=== PATIENT | female | born 1935 | race African-American/Black ===

== ENCOUNTER 2018-04-13 07:51 | Outpatient (CLI) | payer MEDICARE ==
[~2018-04-13] VITALS: Ht 175.3 cm; Wt 68.0 kg
[~2018-04-13 07:51] MED LIST: COUMADIN2.5 MG PO; FERROUS SULFAT325 MG PO; KLOR-CON 1010 MEQ PO; LANOXIN250 MCG PO; VERELAN120 MG PO
[2018-04-13 09:45] VITALS: BP 138/57; Ht 175.3 cm; Wt 68.0 kg
== END 2018-04-13 18:45 | disposition home or self-care (01) ==
LOC: D.OPS 07:51
DX: D64.9 Anemia, unspecified (principal); Z01.812 Encounter for preprocedural laboratory examination

== ENCOUNTER 2019-01-07 08:45 | Inpatient (IN) | payer MEDICARE ==
[2019-01-07] VITALS (7 sets, daily range): BP systolic 119–157; BP diastolic 54–78; BMI 18.5
[~2019-01-07] VITALS: Ht 175.3 cm; Wt 53.3 kg
[2019-01-07 09:33] LABS: BASOPHILS 0.2 % (0-2); HEMATOCRIT 27.7 % (36.0-48.0); HEMOGLOBIN 8.5 g/dL (12-16); IMMATURE GRANULOCYTES 0.2 % (0-5); LYMPHOCYTES 18.6 % (15-50); MCHC 30.7 g/dL (31.0-37.0); MCV 87.9 fL (80.0-100.0); MEAN PLATELET VOLUME 10.5 fL (7.4-10.4); MONOCYTES 10.6 % (2-11); NEUTROPHILS 69.4 % (40-80); PLATELET COUNT 155 10x3/uL (130-400); RBC 3.15 10x6/uL (4.00-5.40); RDW 16.4 % (11.5-14.5); WBC 5.2 10x3/uL (4.8-10.8)
[2019-01-07 09:46] LABS: ALBUMIN 3.6 g/dL (3.4-5.0); ALKALINE PHOSPHATASE 46 U/L (46-116); ALT (SGPT) 13 U/L (10-68); BILIRUBIN - TOTAL 0.63 mg/dL (0.2-1.3); CALC OSMOLALITY 281 mosm/kg (275-300); CALCIUM 8.9 mg/dL (8.5-10.1); CARBON DIOXIDE 29.9 mmol/L (21.0-32.0); CHLORIDE - SERUM 104 mmol/L (98-107); CREATININE - SERUM 0.9 mg/dL (0.6-1.3); GLUCOSE 104 mg/dL (74-106); PROTEIN - SERUM 7.7 g/dL (6.4-8.2); SODIUM 141 mmol/L (136-145); UREA NITROGEN 15 mg/dL (7-18); eGFR NON AFRICAN AMERICAN 63 mL/min (90-120)
[2019-01-07 09:58] LABS: CKMB 0.4 U/L (0.0-3.6); CREATINE KINASE 38 UL (21-215); MAGNESIUM - SERUM 2.2 mg/dL (1.8-2.4); TROPONIN-I < 0.017 ng/mL (0.000-0.060)
[2019-01-07 10:46] LABS: APPEARANCE CLEAR (CLEAR); BILIRUBIN NEGATIVE (NEGATIVE); COLOR YELLOW (YELLOW); GLUCOSE NEGATIVE (NEGATIVE); KETONE NEGATIVE (NEGATIVE); NITRITE NEGATIVE (NEGATIVE); PROTEIN NEGATIVE (NEGATIVE); SPECIFIC GRAVITY 1.015 (1.005-1.020); UROBILINOGEN NORMAL (NORMAL)
[2019-01-07 16:35] LABS: APTT 48.7 SECONDS (22.8-39.4); INR 2.7 (0.85-1.17); PROTIME 27.9 SECONDS (11.6-15.0)
[2019-01-07 16:36] LABS: D-DIMER-QUANTITATIVE 1.32 ug/mLFEU (0.20-0.54)
[2019-01-07 16:49] LABS: CKMB 0.2 U/L (0.0-3.6); CREATINE KINASE 38 UL (21-215); MAGNESIUM - SERUM 2.3 mg/dL (1.8-2.4); TROPONIN-I 0.026 ng/mL (0.000-0.060)
[2019-01-07 22:35] LABS: CKMB 0.4 U/L (0.0-3.6); CREATINE KINASE 36 UL (21-215)
[2019-01-08 05:49] VITALS: BP 104/41
[2019-01-08 06:28] LABS: ANION GAP 10.8 mmol/L (8-16); CALCIUM 8.3 mg/dL (8.5-10.1); CARBON DIOXIDE 27.5 mmol/L (21.0-32.0); CREATININE - SERUM 0.8 mg/dL (0.6-1.3); POTASSIUM - SERUM 4.3 mmol/L (3.5-5.1)
[2019-01-08 06:35] LABS: BASOPHILS 0.2 % (0-2); HEMATOCRIT 22.3 % (36.0-48.0); IMMATURE GRANULOCYTES 0.2 % (0-5); LYMPHOCYTES 14.2 % (15-50); MCH 27.3 pg (26.0-34.0); MCHC 30.9 g/dL (31.0-37.0); MCV 88.1 fL (80.0-100.0); MEAN PLATELET VOLUME 9.8 fL (7.4-10.4); MONOCYTES 8.7 % (2-11); NEUTROPHILS 75.7 % (40-80); PLATELET COUNT 131 10x3/uL (130-400); RBC 2.53 10x6/uL (4.00-5.40); RDW 16.7 % (11.5-14.5); WBC 5.2 10x3/uL (4.8-10.8)
[2019-01-08 06:53] LABS: HEMOGLOBIN 6.9 g/dL (12-16)
[2019-01-08 09:01] VITALS: BP 106/46
[2019-01-08 10:59] LABS: INR 3.18 (0.85-1.17); PROTIME 31.8 SECONDS (11.6-15.0)
[2019-01-08 11:53] VITALS: BP 121/76
[2019-01-08 13:30] VITALS: Ht 175.3 cm; Wt 53.3 kg
[2019-01-08 20:32] VITALS: BP 109/47
[2019-01-09 06:08] VITALS: BP 104/42
[2019-01-09 07:14] LABS: ANION GAP 10.2 mmol/L (8-16); CALCIUM 8.4 mg/dL (8.5-10.1); CARBON DIOXIDE 28.7 mmol/L (21.0-32.0); POTASSIUM - SERUM 3.9 mmol/L (3.5-5.1)
[2019-01-09 07:23] LABS: BASOPHILS 0.2 % (0-2); EOSINOPHILS 1.1 % (0-7); IMMATURE GRANULOCYTES 0.2 % (0-5); LYMPHOCYTES 12.8 % (15-50); MCH 27.7 pg (26.0-34.0); MCHC 31.7 g/dL (31.0-37.0); MCV 87.1 fL (80.0-100.0); MEAN PLATELET VOLUME 10.5 fL (7.4-10.4); MONOCYTES 8.2 % (2-11); NEUTROPHILS 77.5 % (40-80); PLATELET COUNT 143 10x3/uL (130-400); RDW 16.1 % (11.5-14.5); WBC 6.3 10x3/uL (4.8-10.8)
[2019-01-09 07:35] LABS: HEMATOCRIT 27.1 % (36.0-48.0); HEMOGLOBIN 8.6 g/dL (12-16); RBC 3.11 10x6/uL (4.00-5.40)
[2019-01-09 10:25] VITALS: BP 111/45
[2019-01-09 15:55] VITALS: BP 119/76
[2019-01-09 20:55] VITALS: BP 121/50
[2019-01-09 21:02] VITALS: BP 114/37; BP 126/38
[2019-01-10 00:46] VITALS: BP 131/80
[2019-01-10 05:29] LABS: BASOPHILS 0.2 % (0-2); EOSINOPHILS 1.8 % (0-7); HEMATOCRIT 27.9 % (36.0-48.0); HEMOGLOBIN 8.6 g/dL (12-16); IMMATURE GRANULOCYTES 0.2 % (0-5); MCH 27.3 pg (26.0-34.0); MCHC 30.8 g/dL (31.0-37.0); MCV 88.6 fL (80.0-100.0); MEAN PLATELET VOLUME 10.1 fL (7.4-10.4); MONOCYTES 9.2 % (2-11); NEUTROPHILS 72.6 % (40-80); PLATELET COUNT 140 10x3/uL (130-400); RBC 3.15 10x6/uL (4.00-5.40); RDW 16.3 % (11.5-14.5); WBC 6.2 10x3/uL (4.8-10.8)
[2019-01-10 05:36] LABS: CALCIUM 8.5 mg/dL (8.5-10.1); CARBON DIOXIDE 26.8 mmol/L (21.0-32.0); CREATININE - SERUM 1.1 mg/dL (0.6-1.3); POTASSIUM - SERUM 3.8 mmol/L (3.5-5.1)
[2019-01-10 05:43] VITALS: BP 112/47
--- NOTE | 2019-01-10 14:39 | CN ---
PATIENT NAME:DAVID BECKHAM MEDICAL RECORD: [id number] : 31 LOCATION:. D.2137 ADMIT DATE: 01/08/19 ACCOUNT: [id number] CONSULTING PHYSICIAN: ANDREA ANTOINE MD REFERRING PHYSICIAN: NETTA RAMIREZ MD DATE OF CONSULTATION: 01/08/2019 DIAGNOSES: 1. Syncope. 2. Paroxysmal. 3. Atrial fibrillation. 4. Sick sinus syndrome, status post pacemaker. 5. Coronary artery disease, status post coronary bypass graft surgery. 6. Hypertension. 7. Dementia. HISTORY OF PRESENT ILLNESS: Mrs. Beckham presents with syncope. She does have a history of coronary artery disease. She has had no anginal symptomatology. She has had bypass surgery. She has a history of atrial fibrillation, for which she is on chronic Coumadin therapy, verapamil, and digoxin. The verapamil also controls her blood pressure. She has had no significant dysrhythmias. Here, her heart rate and blood pressure have been normal. PHYSICAL EXAMINATION: GENERAL APPEARANCE: Well-nourished, well-developed, appears stated age. Level of distress, comfortable. PSYCHIATRIC: Mental status, alert, normal affect. Orientation, oriented to time, place and person. EYES: Lids and conjunctiva, noninjected. No discharge, no pallor. ENT: Lips, teeth, gums, normal dentition. Oropharynx, no cyanosis, no pallor. NECK: Carotid arteries, bilateral normal upstroke, no bruits, no thrills. JUGULAR VEINS: No jugular venous pressure or distention. CERVICAL LYMPH NODES: Nontender, nonenlarged. THYROID: Not enlarged. Nontender. No nodules. LUNGS: Respiratory effort, unlabored. CHEST: Normal curvature. No thoracic deformity. No chest wall tenderness. Percussion, resonant. Auscultation, clear. No wheezes, no rales, no rhonchi. CARDIOVASCULAR: Precordial exam, nondisplaced. No heaves or pericardial thrills. Rate and rhythm, regular. Heart sounds, normal S1, normal S2. No S3, no gallop, no rub. Systolic murmur, not heard. Diastolic murmur, not heard. EXTREMITIES: No cyanosis, no edema. Peripheral pulses, full and equal in all extremities, except as noted. No bruits appreciated. ABDOMEN: Soft, nondistended. Normal aorta. No bruit. Nontender. No masses. Liver, nontender, no hepatomegaly. Spleen, nontender, no splenomegaly. MUSCULOSKELETAL: No joint tenderness. No joint swelling. No erythema. NEUROLOGICAL: Normal gait, normal strength, normal tone. SKIN: Warm and dry. IMPRESSION: We will interrogate the pacemaker for evaluation of syncope. TRANSINT:[id number] Voice Confirmation ID: [id number] DOCUMENT ID: [id number] CONSULT REPORT [id number] DAVID BECKHAM, ANDREA BRIONES at 1439 CC: [id number] DICTATION DATE: 01/08/19 0816 ROLLER PRINTING SUPERVISOR: 01/08/19 1442 ADM IN [facility] [address] [place] [id number]
--- NOTE | 2019-01-10 14:39 | EC ---
PATIENT:DAVID BECKHAM DATE OF SERVICE: 01/08/19 SEX: F MEDICAL RECORD: [id number] DATE OF : 31 LOCATION:D. D.213 AGE OF PATIENT: 83 ADMISSION DATE: 01/08/19 REFERRING PHYSICIAN: INTERPRETING PHYSICIAN: ANDREA QUINTERO MD ECHOCARDIOGRAM REPORT ECHO CHARGES 4 ECHO COMPLETE Date: 01/07/19 CLINICAL DIAGNOSIS: MURMUR ECHOCARDIOGRAPHIC MEASUREMENTS (adult normal given) AC root (d.<3.7cm) 3.0 cm LV Septum d (<1.2 cm> 1.2 cm Valve Excursion 0.9 cm LV Septum (systole) 1.4 cm Left Atria (s.<4.0cm> 11.6 cm LVPW d(<1.2cm) 1.2 cm RV (d.<2.3cm) 2.5 cm LVPW (sytole) 1.8 cm LV diastole(<5.6CM) 6.1 cm MV E-F(>70mm/sec) cm LV systole 4.7 cm LVOT Diameter 1.9 cm MV exc.(>10mm) cm Est.ejection fraction (50-75%) % DOPPLER: LVIT cm/sec A 33 cm/sec E 120 cm/sec LA cm/sec RVSP 46.4 mmHg LVOT 97 cm/sec AOP1/2T m/s Asc. Ao 213 cm/sec RVOT 59 cm/sec RA cm/sec PA 93 cm/sec AV Gradient Peak 18.1 mmHg AV Mean 11.4 mmHg AV Area 1.4 cm MV Gradient Peak 17.5 mmHg MV Mean 6.7 mmHg MV Area cm COMMENTS: Guest Service Aide: Ksenia [facility] Hand Iii Cutter: 1 Dr. Quintero TAPE# PACS Pericardial Effusion N DATE OF SERVICE: FINDINGS: 1. Left ventricular chamber size is dilated. Left ventricular systolic function is mildly reduced. Overall ejection fraction in 45% to 50% range. 2. Left atrium is enlarged. Right atrium and right ventricular chamber sizes are as well mildly dilated. 3. Valvular structures: Aortic valve demonstrates mild calcific aortic stenosis. Valve area calculates to 1.4 cm-squared with gradient of 18 mm across the valve. 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 4. Doppler interrogation reveals mild aortic insufficiency, severe mitral regurgitation, and moderate tricuspid regurgitation. No other valvular insufficiency or stenosis. Pulmonary systolic pressure is estimated at 46 mmHg. No evidence of pericardial effusion or left ventricular thrombus. TRANSINT:[id number] Voice Confirmation ID: [id number] DOCUMENT ID: [id number] ANDREA QUINTERO MD at 1439 CC: [id number] DICTATION DATE: 01/08/19906 STRETCHING MACHINE TENDER FRAME: 01/08/19 1510 ADM IN [place] [address] [place] [id number]
[2019-01-10 18:17] VITALS: BP 156/55
[2019-01-10 21:07] VITALS: BP 101/43
[2019-01-11 05:02] VITALS: BP 107/55
[2019-01-11 06:30] LABS: BASOPHILS 0 % (0-2); HEMATOCRIT 28.6 % (36.0-48.0); HEMOGLOBIN 8.9 g/dL (12-16); IMMATURE GRANULOCYTES 0.2 % (0-5); LYMPHOCYTES 14.8 % (15-50); MCHC 31.1 g/dL (31.0-37.0); MCV 89.9 fL (80.0-100.0); MEAN PLATELET VOLUME 10.1 fL (7.4-10.4); MONOCYTES 8.1 % (2-11); NEUTROPHILS 74.9 % (40-80); PLATELET COUNT 150 10x3/uL (130-400); RBC 3.18 10x6/uL (4.00-5.40); RDW 16.3 % (11.5-14.5)
[2019-01-11 06:50] LABS: ANION GAP 10.7 mmol/L (8-16); CALCIUM 8.3 mg/dL (8.5-10.1); CARBON DIOXIDE 27.1 mmol/L (21.0-32.0); CREATININE - SERUM 1.1 mg/dL (0.6-1.3); POTASSIUM - SERUM 3.8 mmol/L (3.5-5.1)
[2019-01-11 06:52] LABS: INR 3.39 (0.85-1.17); PROTIME 33.5 SECONDS (11.6-15.0)
[2019-01-11 09:39] VITALS: BP 116/38
[2019-01-11 11:45] VITALS: BP 93/39
--- NOTE | 2019-01-11 11:53 | MORECARE ---
CASE MANAGEMENT DISCHARGE SUMMARY PATIENT: DAVID BECKHAM UNIT: [id number] ADM DATE: 01/08/19 AGE: 83 : 33 SEX: F ROOM/BED: D.2137 AUTHOR: UZMA RUDD PHYSICIAN: REFERRING PHYSICIAN: NETTA RAMIREZ MD DATE OF SERVICE: 01/11/19 Discharge Plan Patient Name: DAVID BECKHAM Facility: [facility]:[place] : 1935 Planned Disposition: Home Anticipated Discharge Date: Discharge Date: Expected LOS: Initial Reviewer: [email or web address] Initial Review Date: 01/11/2019 Generated: 01/11/19 12:53 pm Coverage Notice Reviewer: [id number] - Tyrell Marquez Notice Issued Date-Time: 01/11/2019 9:25 Notice Type: IM Discharge Notice Notice Delivered To: Patient Relationship to Patient: Retail Specialist Name: Delivery Method: HAND - Hand Delivered Yuli Days: Prior Verbal Notification: Recipient Understood Notice: Yes Recipient Signature: Yes Med Rec Note Co-signed by Attending: Coverage Notice Comment: Patient Name: DAVID BECKHAM Page [phone] at 1153 All edits/amendments must be made on the electronic document DICTATION DATE: 01/11/19 115 ROENTGENOLOGIST: PATRICIA 01/11/19 115 RPT#: [id number] DC DATE: STATUS: ADM IN [place] [address] [place] [address] END OF REPORT
--- NOTE | 2019-01-11 12:01 | MORECARE ---
CASE MANAGEMENT DISCHARGE SUMMARY PATIENT: DAVID BECKHAM UNIT: [id number] ADM DATE: 01/08/19 AGE: 83 : 33 SEX: F ROOM/BED: D.3526 AUTHOR: BLAIRE,DOC PHYSICIAN: REFERRING PHYSICIAN: NETTA RAMIREZ MD DATE OF SERVICE: 01/11/19 Discharge Plan Patient Name: DAVID BECKHAM Facility: [facility]:[place] : 1935 Planned Disposition: Home Anticipated Discharge Date: Discharge Date: Expected LOS: Initial Reviewer: [id number] Initial Review Date: 01/11/2019 Generated: 01/11/19 1:01 pm Comments DCP- Discharge Planning Updated by [email or web address]: Tyrell Maruqez on 01/11/19 11:[address] Patient Name: DAVID BECKHAM Admission Status: ER Accout number: [id number] Admission Date: 01-08-2019 : 1935 Admission Diagnosis: Attending: NETTA RAMIREZ Current LOS: 3 Anticipated DC Date: Planned Disposition: Home Primary Insurance: MEDICARE A & B Discharge Planning Comments: CM MET WITH PT AND DAUGHTER IN ROOM TO DISCUSS DISCHARGE PLANNING AND NEEDS. DAVID BECKHAM provided verbal consent to discuss current and ongoing needs with/in the presence of: DAUGHTERALISE. PT REPORTS LIVING AT HOME DEPENDENTLY WITH SPOUSE AND CHILDREN WHO ASSIST WITH MANAGING MEDICATIONS. PT HAS NO MEDICAL EQUIPMENT AND NO OUTSIDE SERVICES ASSISTING IN THE HOME. CM DISCUSSED AVAILABILITY OF HOME HEALTH, REHAB SERVICES AND MEDICAL EQUIPMENT. PT DENIES DISCHARGE NEEDS, REPORTS HER FAMILY WILL PICK HER UP FOR DISCHARGE HOME. IMPORTANT MESSAGE FROM MEDICARE PROVIDED AND EXPLAINED. PATIENT PLANS TO DISCHARGE HOME WITH FAMILY, DENIES NEEDS AT THIS TIME. CM TO FOLLOW AND ASSIST IF NEEDED. Advertising Assistant Manager: Tyrell Marquez DCPIA - Discharge Planning Initial Assessment Updated by [email or web address]: Tyrell Marquez on 01/11/19 11:53 am * Is the patient Alert and Oriented? Yes * How many steps to enter\exit or inside your home? NONE * PCP DR. BHATTI * Pharmacy [facility] * Preadmission Environment Home with Family * ADLs Partial Dependent * Partial ADLs (Assistance needed) Medication Management * Equipment None * Other Equipment [employer] - PREFERRED EQUIPMENT PROVIDER * List name and contact numbers for known caregivers / representatives who currently or will assist patient after discharge: GLORIA BECKHAM, SPOUSE, ALISE VICKERS, DTR, * Verbal permission to speak to the caregivers and representatives has been obtained from the patient. Yes * Community resources currently utilized None * Please name any agencies selected above. NONE * Additional services required to return to the preadmission environment? No * Can the patient safely return to the preadmission environment? Yes * Has this patient been hospitalized within the prior 30 days at any hospital? No Coverage Notice Reviewer: [id number] Genaro Marquez Notice Issued Date-Time: 01/11/2019 9:25 Notice Type: IM Discharge Notice Notice Delivered To: Patient Relationship to Patient: Inspector Technician Name: Delivery Method: HAND - Hand Delivered Yuli Days: Prior Verbal Notification: Recipient Understood Notice: Yes Recipient Signature: Yes Med Rec Note Co-signed by Attending: Coverage Notice Comment: Last DP export: 01/11/19 10:53 a Patient Name: DAVID BECKHAM Page [phone] at 1201 All edits/amendments must be made on the electronic document DICTATION DATE: 01/11/19 1200 DIRECTOR OF TESTING: PATRICIA 01/11/19 1200 RPT#: [id number] DC DATE: STATUS: ADM IN [facility] [address] [place] [address] END OF REPORT
[2019-01-11 16:53] VITALS: BP 115/49
[2019-01-11 21:14] VITALS: BP 99/50
[2019-01-12 03:53] VITALS: BP 107/48
[2019-01-12 05:49] LABS: BASOPHILS 0.2 % (0-2); EOSINOPHILS 2.7 % (0-7); HEMATOCRIT 28.3 % (36.0-48.0); HEMOGLOBIN 8.8 g/dL (12-16); IMMATURE GRANULOCYTES 0.2 % (0-5); LYMPHOCYTES 18.5 % (15-50); MCHC 31.1 g/dL (31.0-37.0); MCV 90.1 fL (80.0-100.0); MONOCYTES 7.7 % (2-11); NEUTROPHILS 70.7 % (40-80); PLATELET COUNT 140 10x3/uL (130-400); RBC 3.14 10x6/uL (4.00-5.40); RDW 16.3 % (11.5-14.5); WBC 5.2 10x3/uL (4.8-10.8)
[2019-01-12 06:19] LABS: ALBUMIN 2.8 g/dL (3.4-5.0); BILIRUBIN - TOTAL 0.59 mg/dL (0.2-1.3); CALCIUM 8.3 mg/dL (8.5-10.1); CARBON DIOXIDE 26.8 mmol/L (21.0-32.0); POTASSIUM - SERUM 3.8 mmol/L (3.5-5.1); PROTEIN - SERUM 6.2 g/dL (6.4-8.2)
[2019-01-12 08:00] VITALS: BP 120/52
--- NOTE | 2019-01-12 09:18 | MORECARE ---
CASE MANAGEMENT DISCHARGE SUMMARY PATIENT: DAVID BECKHAM UNIT: [id number] ADM DATE: 01/08/19 AGE: 83 : 33 SEX: F ROOM/BED: D.1657 AUTHOR: BLAIRE,DOC PHYSICIAN: REFERRING PHYSICIAN: NETTA RAMIREZ MD DATE OF SERVICE: 01/12/19 Discharge Plan Patient Name: DAVID BECKHAM Facility: [facility]:[place] : 1935 Planned Disposition: Home Anticipated Discharge Date: Discharge Date: Expected LOS: Initial Reviewer: [email or web address] Initial Review Date: 01/11/2019 Generated: 01/12/19 10:18 am Comments DCP- Discharge Planning Updated by [email or web address]: Tyrell Marquez on 01/11/19 11:[address] Patient Name: DAVID BECKHAM Admission Status: ER Accout number: [id number] Admission Date: 01-08-2019 : 1935 Admission Diagnosis: Attending: NETTA RAMIREZ Current LOS: 3 Anticipated DC Date: Planned Disposition: Home Primary Insurance: MEDICARE A & B Discharge Planning Comments: CM MET WITH PT AND DAUGHTER IN ROOM TO DISCUSS DISCHARGE PLANNING AND NEEDS. DAVID BECKHAM provided verbal consent to discuss current and ongoing needs with/in the presence of: DAUGHTERALISE. PT REPORTS LIVING AT HOME DEPENDENTLY WITH SPOUSE AND CHILDREN WHO ASSIST WITH MANAGING MEDICATIONS. PT HAS NO MEDICAL EQUIPMENT AND NO OUTSIDE SERVICES ASSISTING IN THE HOME. CM DISCUSSED AVAILABILITY OF HOME HEALTH, REHAB SERVICES AND MEDICAL EQUIPMENT. PT DENIES DISCHARGE NEEDS, REPORTS HER FAMILY WILL PICK HER UP FOR DISCHARGE HOME. IMPORTANT MESSAGE FROM MEDICARE PROVIDED AND EXPLAINED. PATIENT PLANS TO DISCHARGE HOME WITH FAMILY, DENIES NEEDS AT THIS TIME. CM TO FOLLOW AND ASSIST IF NEEDED. Cook Larder: Tyrell Marquez DCPIA - Discharge Planning Initial Assessment Updated by [id number]: Tyrell Marquez on 01/11/19 11:53 am * Is the patient Alert and Oriented? Yes * How many steps to enter\exit or inside your home? NONE * PCP DR. BHATTI * Pharmacy [facility] * Preadmission Environment Home with Family * ADLs Partial Dependent * Partial ADLs (Assistance needed) Medication Management * Equipment None * Other Equipment [employer] - PREFERRED EQUIPMENT PROVIDER * List name and contact numbers for known caregivers / representatives who currently or will assist patient after discharge: GLORIA BECKHAM, SPOUSE, ALISE VICKERS, DTR, * Verbal permission to speak to the caregivers and representatives has been obtained from the patient. Yes * Community resources currently utilized None * Please name any agencies selected above. NONE * Additional services required to return to the preadmission environment? No * Can the patient safely return to the preadmission environment? Yes * Has this patient been hospitalized within the prior 30 days at any hospital? No Coverage Notice Reviewer: [id number] Genaro Marquez Notice Issued Date-Time: 01/11/2019 9:25 Notice Type: IM Discharge Notice Notice Delivered To: Patient Relationship to Patient: Power Plant Inspector Name: Delivery Method: HAND - Hand Delivered Yuli Days: Prior Verbal Notification: Recipient Understood Notice: Yes Recipient Signature: Yes Med Rec Note Co-signed by Attending: Coverage Notice Comment: Last DP export: 01/11/19 11:01 a Patient Name: DAVID BECKHAM Page [id number] at 0918 All edits/amendments must be made on the electronic document DICTATION DATE: 01/12/19917 [employer] SALES: PATRICIA 01/12/19917 RPT#: [id number] DC DATE: STATUS: ADM IN [facility] [address] [place] [address] END OF REPORT
[2019-01-12 11:52] VITALS: BP 104/42
[2019-01-12 12:54] LABS: INR 2.76 (0.85-1.17); PROTIME 28.4 SECONDS (11.6-15.0)
[2019-01-12 15:05] VITALS: BP 116/48
[2019-01-12 20:32] VITALS: BP 100/42
[2019-01-13 00:47] VITALS: BP 97/42
[2019-01-13 05:24] VITALS: BP 93/59
[2019-01-13 05:55] LABS: BASOPHILS 0.2 % (0-2); EOSINOPHILS 2.3 % (0-7); HEMATOCRIT 28.6 % (36.0-48.0); HEMOGLOBIN 8.8 g/dL (12-16); IMMATURE GRANULOCYTES 0.2 % (0-5); MCH 27.8 pg (26.0-34.0); MCHC 30.8 g/dL (31.0-37.0); MCV 90.5 fL (80.0-100.0); MEAN PLATELET VOLUME 10.6 fL (7.4-10.4); MONOCYTES 9.2 % (2-11); NEUTROPHILS 72.1 % (40-80); PLATELET COUNT 152 10x3/uL (130-400); RBC 3.16 10x6/uL (4.00-5.40); RDW 16.1 % (11.5-14.5); WBC 5.1 10x3/uL (4.8-10.8)
[2019-01-13 06:05] LABS: INR 2.32 (0.85-1.17); PROTIME 24.7 SECONDS (11.6-15.0)
[2019-01-13 06:27] LABS: ALBUMIN 2.7 g/dL (3.4-5.0); ANION GAP 10.3 mmol/L (8-16); BILIRUBIN - TOTAL 0.35 mg/dL (0.2-1.3); CARBON DIOXIDE 27.6 mmol/L (21.0-32.0); CREATININE - SERUM 1.1 mg/dL (0.6-1.3); POTASSIUM - SERUM 3.9 mmol/L (3.5-5.1); PROTEIN - SERUM 6.2 g/dL (6.4-8.2)
[2019-01-13 08:10] VITALS: BP 126/64
[2019-01-13 11:51] VITALS: BP 121/78
[2019-01-13] MEDS ORDERED: BETAPACE 80 MG80 MG PO (11:54)
--- NOTE | 2019-01-15 08:57 | MORECARE ---
CASE MANAGEMENT DISCHARGE SUMMARY PATIENT: DAVID BECKHAM UNIT: [id number] ADM DATE: 01/08/19 AGE: 83 : 33 SEX: F ROOM/BED: D.5549 AUTHOR: BLAIRE,DOC PHYSICIAN: REFERRING PHYSICIAN: NETTA RAMIREZ MD DATE OF SERVICE: 01/15/19 Discharge Plan Patient Name: DAVID BECKHAM Facility: [facility]:[place] : 1935 Planned Disposition: Home Anticipated Discharge Date: Discharge Date: 01/13/2019 Expected LOS: Initial Reviewer: [id number] Initial Review Date: 01/11/2019 Generated: 01/15/19 9:57 am Comments DCP- Discharge Planning Updated by [email or web address]: Tyrell Marquez on 01/11/19 11:[address] Patient Name: DAVID BECKHAM Admission Status: ER Accout number: [id number] Admission Date: 01-08-2019 : 1935 Admission Diagnosis: Attending: NETTA RAMIREZ Current LOS: 3 Anticipated DC Date: Planned Disposition: Home Primary Insurance: MEDICARE A & B Discharge Planning Comments: CM MET WITH PT AND DAUGHTER IN ROOM TO DISCUSS DISCHARGE PLANNING AND NEEDS. DAVID BECKHAM provided verbal consent to discuss current and ongoing needs with/in the presence of: DAUGHTERALISE. PT REPORTS LIVING AT HOME DEPENDENTLY WITH SPOUSE AND CHILDREN WHO ASSIST WITH MANAGING MEDICATIONS. PT HAS NO MEDICAL EQUIPMENT AND NO OUTSIDE SERVICES ASSISTING IN THE HOME. CM DISCUSSED AVAILABILITY OF HOME HEALTH, REHAB SERVICES AND MEDICAL EQUIPMENT. PT DENIES DISCHARGE NEEDS, REPORTS HER FAMILY WILL PICK HER UP FOR DISCHARGE HOME. IMPORTANT MESSAGE FROM MEDICARE PROVIDED AND EXPLAINED. PATIENT PLANS TO DISCHARGE HOME WITH FAMILY, DENIES NEEDS AT THIS TIME. CM TO FOLLOW AND ASSIST IF NEEDED. Claim Specialist: Tyrell Marquez DCPIA - Discharge Planning Initial Assessment Updated by [email or web address]: Tyrell Marquez on 01/11/19 11:53 am * Is the patient Alert and Oriented? Yes * How many steps to enter\exit or inside your home? NONE * PCP DR. BHATTI * Pharmacy [facility] * Preadmission Environment Home with Family * ADLs Partial Dependent * Partial ADLs (Assistance needed) Medication Management * Equipment None * Other Equipment [employer] - PREFERRED EQUIPMENT PROVIDER * List name and contact numbers for known caregivers / representatives who currently or will assist patient after discharge: GLORIA BECKHAM, SPOUSE, ALISE ALEE, DTR, * Verbal permission to speak to the caregivers and representatives has been obtained from the patient. Yes * Community resources currently utilized None * Please name any agencies selected above. NONE * Additional services required to return to the preadmission environment? No * Can the patient safely return to the preadmission environment? Yes * Has this patient been hospitalized within the prior 30 days at any hospital? No Coverage Notice Reviewer: [email or web address] Genaro Marquez Notice Issued Date-Time: 01/11/2019 9:25 Notice Type: IM Discharge Notice Notice Delivered To: Patient Relationship to Patient: Chief Substation Operator Name: Delivery Method: HAND - Hand Delivered Yuli Days: Prior Verbal Notification: Recipient Understood Notice: Yes Recipient Signature: Yes Med Rec Note Co-signed by Attending: Coverage Notice Comment: Last DP export: 01/12/19 8:18 a Patient Name: DAVID BECKHAM Page [phone] at 0857 All edits/amendments must be made on the electronic document DICTATION DATE: 01/15/19855 OPERATOR ASSISTANT I CEMENTING: PATRICIA 01/15/1958 RPT#: [id number] DC DATE:01/13/19 STATUS: DIS IN [facility] [address] [place] [address] END OF REPORT
== END 2019-01-13 13:48 | disposition home or self-care (01) | DRG 378 ==
LOC: D.ER 08:45 → D.EDHOLD 10:58 → D.M2 10:58 → OBSVTIME 10:59 → D.M2 11:37
PROVIDERS: Family Medicine; Internal Medicine Gastroenterology; ADMIT Internal Medicine Nephrology; ATTEND Internal Medicine Nephrology
PROC: 0DJ08ZZ Inspection of Upper Intestinal Tract, Via Natural or Artificial Opening Endoscopic (ICD-10-PCS; principal; 2019-01-10 13:50)
DX: K92.1 Melena (principal); D62 Acute posthemorrhagic anemia; R55 Syncope and collapse; F03.90 Unspecified dementia, unspecified severity, without behavioral disturbance, psychotic disturbance, mood disturbance, and anxiety; I25.10 Atherosclerotic heart disease of native coronary artery without angina pectoris; K21.0 Gastro-esophageal reflux disease with esophagitis; K29.70 Gastritis, unspecified, without bleeding; D50.9 Iron deficiency anemia, unspecified; Z95.0 Presence of cardiac pacemaker